=== PATIENT | male | born 1970 | race Caucasian/White ===

== ENCOUNTER 2017-08-01 17:32 | Emergency (ER) | payer BC ==
[2017-08-01] MEDS ORDERED: BENADRYL 50 MG/ML IV ONE (17:36)
[2017-08-01] MEDS ORDERED: MORPHINE SULFATE 10 MG/ML IV ONE (17:36)
[2017-08-01] MEDS ORDERED: BENADRYL 50 MG/ML ONE ×2 (17:40→17:49)
[2017-08-01] MEDS ORDERED: MORPHINE SULFATE 10 MG/ML ONE ×2 (17:41→17:50)
[2017-08-01] MEDS ORDERED: Marcaine 0.5% SDV 10 ML IJ ONE (18:09)
[2017-08-01] MEDS ORDERED: KEFZOL 1 GM/50 ML PREMIX** 1 GM/50 ML IVPB IV STA (18:10)
[2017-08-01] MEDS ORDERED: Marcaine 0.5% SDV 10 ML ONE (18:14)
[2017-08-01] MEDS ORDERED: Sodium Chloride 0.9% 1000 ML 2,000 ML ONE (18:20)
--- NOTE | 2017-08-01 19:05 | ERPHSYRPT ---
- History of Present Illness Time Seen by Provider: 08/01/17 17:36 Source: patient, family Patient Subjective Stated Complaint: PT REPORTS WALKING WITH A CHAIN SAW WHEN IT HIT LEFT LEG-REPORTS LAC Triage Nursing Assessment: PT PINK WARM ET [id number] LAC NOTED WITH PRESSURE BEING APPLIED-PT ABLE TO MOVE EXTEMITY Physician History: CC: leg laceration Hx: 47 y/o healthy patient [place] using a chainsaw. While carrying it engaged, the chain cut his left leg above the knee. No other injuries. No N/T/ W. Tetanus up to date 4 years ago. No allergies. Pain moderately severe. Was not able to walk due to bleeding and pain. Lower Extremities Pain: knee: left Allergies/Adverse Reactions: No Known Drug Allergies Allergy (Unverified 08/01/17 17:38) Home Medications: Escitalopram Oxalate 10 mg [Lexapro 10 MG] 10 mg PO DAILY 08/01/17 [History] Hx Tetanus, Diphtheria Vaccination/Date Given: Yes Hx Influenza Vaccination/Date Given: No Hx Pneumococcal Vaccination/Date Given: No Immunizations Up to Date: Yes - Review of Systems Constitutional: No Symptoms Abdominal/Gastrointestinal: No Abdominal Pain, No Nausea, No Vomiting Musculoskeletal: Injury (left knee), No Back Pain, No Neck Pain Skin: Skin Lesions (laceration) Neurological: No Focal Weakness, No Headache, No Parasthesia All Other Systems: Reviewed and Negative - Past Medical History Pertinent Past Medical History: No - Past Surgical History Past Surgical History: Yes Musculoskeletal: Orthopedic Surgery - Social History Smoking Status: Never smoker Exposure to second hand smoke: No Drug Use: none Patient Lives Alone: No - Nursing Vital Signs Nursing Vital Signs: Initial Vital Signs Temperature 98.4 F 08/01/17 17:36 Pulse Rate 76 08/01/17 17:36 Respiratory Rate 20 08/01/17 17:36 Blood Pressure 117/57 08/01/17 17:36 O2 Sat by Pulse Oximetry 96 08/01/17 17:36 Pain Scale Pain Intensity 5 - Physical Exam General Appearance: alert Eyes, Ears, Nose, Throat Exam: moist mucous membranes Neck Exam: supple Cardiovascular/Respiratory Exam: regular rate/rhythm Neuro/Tendon Exam: normal sensation, normal motor functions Mental Status Exam: alert, oriented x 3, cooperative Skin Exam: warm, dry SpO2 Interpretation: normal SpO2: 96 Oxygen Delivery: Room Air Comments: 7 cm laceration left suprapatellar anterior knee. ROM intact. No FB noted. Sensation intact distally. No tendon or deep structure involvement. 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) Hibiclens Prep: Yes Anesthesia: local, marcaine 0.5 Volume Anesthetic (ccs): 8 Wound Repaired With: sutures Suture Size/Type: 3-0, prolene Number of Sutures: 11 Sterile Dressing Applied?: Yes - Course Nursing assessment & vital signs reviewed: Yes - Radiology Exams left knee X-ray Interpretation: Reviewed by me, No Fracture (no FB) Ordered Tests: Active Orders 24 hr Category Date Time Status IV Insertion STAT Care 08/01/17 17:36 Active NPO (ED) STAT Care 08/01/17 17:36 Active Wound Care STAT Care 08/01/17 18:09 Active KNEE (1 OR 2 VIEW) Stat Exams 08/01/17 17:38 Taken Medication Summary Discontinued Medications Generic Name Dose Route Start Last Admin Trade Name Alban PRN Reason Stop Dose Admin Bupivacaine HCl 5 ml 08/01/17 18:09 Marcaine 0.5% Sdv 10 Ml IJ 08/01/17 18:10 STAT ONE Bupivacaine HCl Confirm 08/01/17 18:14 Marcaine 0.5% Sdv 10 Ml Administered 08/01/17 18:15 Dose 10 ml .ROUTE .STK-MED ONE Diphenhydramine HCl 30 mg 08/01/17 17:36 08/01/17 17:44 Benadryl 50 Mg/Ml IV 08/01/17 17:37 30 mg STAT ONE Administration Diphenhydramine HCl Confirm 08/01/17 17:40 Benadryl 50 Mg/Ml Administered 08/01/17 17:41 Dose 50 mg .ROUTE .STK-MED ONE Diphenhydramine HCl Confirm 08/01/17 17:49 Benadryl 50 Mg/Ml Administered 08/01/17 17:50 Dose 50 mg .ROUTE .STK-MED ONE Cefazolin Sodium/Dextrose 1 gm in 50 mls @ 100 mls/hr 08/01/17 18:10 Kefzol 1 Gm/50 Ml Premix IV 08/01/17 18:39 STAT STA Sodium Chloride Confirm 08/01/17 18:20 Sodium Chloride 0.9% 1000 Ml Administered 08/01/17 18:21 Dose 2,000 mls @ ud .ROUTE .STK-MED ONE Morphine Sulfate 6 mg 08/01/17 17:36 08/01/17 17:45 Morphine Sulfate 10 Mg/Ml IV 08/01/17 17:37 6 mg STAT ONE Administration Morphine Sulfate Confirm 08/01/17 17:41 Morphine Sulfate 10 Mg/Ml Administered 08/01/17 17:42 Dose 10 mg .ROUTE .STK-MED ONE Morphine Sulfate Confirm 08/01/17 17:50 Morphine Sulfate 10 Mg/Ml Administered 08/01/17 17:51 Dose 10 mg .ROUTE .STK-MED ONE - Progress Progress Note: 08/01/17 19:06 Wound inst given. Advised limited bending. Counseled pt/family regarding: diagnosis, need for follow-up - Departure Time of Disposition: 19:07 Departure Disposition: Home Clinical Impression: Laceration of knee, left Qualifiers: Encounter type: initial encounter Qualified Code(s): S81.012A - Laceration without foreign body, left knee, initial encounter Condition: Stable Critical Care Time: No Referrals: DOCTOR,NO FAMILY [Primary Care Provider] - Additional Instructions: LACERATION CARE 1. Do not use peroxide, merthiolate, alcohol, or betadine. 2. Keep wound clean and dry. 3. Change dressing if it becomes wet or soiled. 4. If you must work, wear protective covering. 5. You may return to the emergency department or see your family physician for suture removal. 6. See your family physician or return to the emergency department for any of the following signs or symptoms: A. Redness B. Swelling C. Discolored drainage D. Red streaks E. Elevated temperature F. Other signs of infection Suture removal in 14 days. Limit bending of left knee.
[2017-08-01 19:17] VITALS: BP 112/78; PULSE 82; O2SAT 98
--- NOTE | 2017-08-02 08:31 | XRAY ---
Indication: Distal thigh laceration. Comparison: None AP and crosstable lateral left knee demonstrates anterior medial suprapatellar soft tissue swelling/laceration. No other bony, articular, or soft tissue abnormalities.
== END 2017-08-01 19:16 | disposition home or self-care (01) ==
LOC: ED 17:32 → MERGE 17:32 → ED 19:16
PROC: 0HQLXZZ Repair Left Lower Leg Skin, External Approach (ICD-10-PCS; principal; 2017-08-01)
DX: S81.012A Laceration without foreign body, left knee, initial encounter (principal); W29.3XXA Contact with powered garden and outdoor hand tools and machinery, initial encounter; Y92.79 Other farm location as the place of occurrence of the external cause
CPT/HCPCS: 12002; 36000; 73560; 96374; 96375; 99285; J1200; J2270